=== PATIENT | female | born 1945 | race Caucasian/White ===

== ENCOUNTER 2018-03-12 07:05 | Emergency (ER) | payer OTHER ==
[~2018-03-12] VITALS: Ht 162.6 cm; Wt 85.5 kg
[2018-03-12 07:11] VITALS: BP 169/79; PULSE 80; RESP 16; TEMP 97.8; O2SAT 98
[2018-03-12] MEDS ORDERED: ORPHENADRINE INJ 60 MG/2 ML AMP IM ONE (07:15)
[2018-03-12] MEDS ORDERED: KETOROLAC TROMETHAMINE 60 MG/2 ML (IM) VIAL IM ONE (07:15)
--- NOTE | 2018-03-12 07:18 | PD ---
HPI Chief Complaint: Back/ Neck Pain or Injury Time Seen by Provider: 07:14 Travel History International Travel<30 days: No Contact w/Intl Traveler<30days: No Traveled to known affect area: No History of Present Illness HPI Patient comes in complaining of neck soreness. Started two mornings ago, after waking up, rates it a 6 out of 10, worse with movement, better with staying still. Patient denies any fecal or urinary incontinence. Patient denies any diffuse back pain to the thoracic lumbar regions. Patient denies any associated factors such as fever, rash, visual changes, headache, chest pain, flank pain, back pain, or abdominal pain. Patient states that originally she started to feel a little twinge 2 days ago, when she helped to lift a motorized wheelchair or her as they [facility]. No known drug allergy Past medical history significant for hypothyroidism, hypercholesterolemia, hypertension and a hysterectomy [facility] [place] Past Surgical History Hysterectomy: Yes Social History Tobacco Use: No Allergies-Medications (Allergen,Severity, Reaction): Coded Allergies: No Known Allergies (Verified Allergy, Unknown, 03/12/18) Reported Meds & Prescriptions Reported Meds & Active Scripts Active Reported Triamterene-Hydrochlorothiazide 37.5-25 Mg Tab 1 Tab DAILY Propranolol (Propranolol HCl) 20 Mg Tab 20 Mg PO DAILY Synthroid (Levothyroxine Sodium) 88 Mcg Tab 88 Mcg PO DAILY Citalopram (Citalopram Hydrobromide) 20 Mg Tab 20 Mg PO DAILY Simvastatin 20 Mg Tab 20 Mg PO DAILY Review of Systems General / Constitutional: No: Fever Eyes: No: Visual changes HENT: Positive: Neck Pain Cardiovascular: No: Chest Pain or Discomfort Respiratory: No: Shortness of Breath Gastrointestinal: No: Abdominal Pain Genitourinary: No: Dysuria Musculoskeletal: No: Pain Skin: No Rash Neurologic: No: Weakness Psychiatric: No: Depression Endocrine: No: Polydipsia Hematologic/Lymphatic: No: Easy Bruising Physical Exam Narrative GENERAL: SKIN: Warm and dry. HEAD: Atraumatic. Normocephalic. EYES: Pupils equal and round. No scleral icterus. No injection or drainage. ENT: No nasal bleeding or discharge. Mucous membranes pink and moist. NECK: Trachea midline. No JVD. No stridor. No midline tenderness to palpation , left posterior SCM has some spasm and tenderness to palpation. CARDIOVASCULAR: Regular rate and rhythm. RESPIRATORY: No accessory muscle use. Clear to auscultation. Breath sounds equal bilaterally. No wheezing GASTROINTESTINAL: Abdomen soft, non-tender, nondistended. Hepatic and splenic margins not palpable. MUSCULOSKELETAL: Extremities without clubbing, cyanosis, or edema. No obvious deformities. NEUROLOGICAL: Awake and alert. No obvious cranial nerve deficits. Motor grossly within normal limits. Five out of 5 muscle strength in the arms and legs. Normal speech. PSYCHIATRIC: Appropriate mood and affect; insight and judgment normal. Data Data Last Documented VS Vital Signs Date Time Temp Pulse Resp B/P (MAP) Pulse Ox O2 Delivery O2 Flow Rate FiO2 03/12/18 07:11 97.8 80 16 169/79 (109) 98 Orders Orders Spine, Cervical Compl([id number]) (03/12/18 ) Ketorolac Inj (Toradol Inj) (03/12/18 07:15) Orphenadrine Inj (Norflex Inj) (03/12/18 07:15) Group A Rapid Strep Screen (03/12/18 07:25) Strep Culture (Group A) (03/12/18 07:24) MDM Medical Decision Making Medical Screen Exam Complete: Yes Emergency Medical Condition: Yes Medical Record Reviewed: Yes Differential Diagnosis Cervical strain versus torticollis versus neck fracture versus neck dislocation versus next subluxation Narrative Course X-rays negative for any fracture, dislocation, or subluxation. Strep test is negative Diagnosis Primary Impression: Cervical strain Patient Instructions: Cervical Neck Strain Exercises (GEN), Cervical Strain (ED ), General Instructions Scripts Tramadol (Ultram) 50 Mg Tab 50 MG PO Q8H Y for PAIN, #10 TAB 0 Refills Prov: Ruben Arvizu MD 03/12/18 Baclofen (Baclofen) 20 Mg Tab 20 MG PO TID for Muscle Spasm, #15 TAB 0 Refills Prov: Ruben Arvizu MD 03/12/18 Disposition: 01 DISCHARGE HOME Condition: Stable Ruben Arvizu MD March 12, 2018 07:18
[2018-03-12] MEDS ORDERED: SIMV20TA PO (07:28)
[2018-03-12] MEDS ORDERED: CITA20TA4 PO (07:28)
[2018-03-12] MEDS ORDERED: SYNT88TA PO (07:28)
[2018-03-12] MEDS ORDERED: HYDR12.57 PO (07:28)
[2018-03-12] MEDS ORDERED: PROP20TA3 PO (07:30)
[2018-03-12] MEDS ORDERED: TRIA37.5 (07:30)
--- NOTE | 2018-03-12 08:09 | RADRPT ---
EXAM DATE/TIME: 03/12/2018 07:45 [facility] COMPARISON: No previous studies available for comparison. INDICATIONS : Left side neck pain and stiffness. MEDICAL HISTORY : None. SURGICAL HISTORY : None. ENCOUNTER: Initial ACUITY: 1 day PAIN SCORE: 8/10 LOCATION: Left neck FINDINGS: 6 views of the cervical spine demonstrate no fracture or dislocation. There is approximately 2 mm of anterolisthesis of C7 in relationship to C6 and T1. Decreased disc height is present at C3-C4 through C6-C7. There are endplate osteophytes anteriorly at these levels. No prevertebral soft tissue swelli ng is present and the atlantoaxial relationship is within normal limits. Oblique views demonstrate un covertebral osteophytes at multiple levels and at C6-C7 causing mild neural foraminal narrowing bilat erally. There is facet arthrosis at C7-T1. The visualized upper lung zones are clear. There is calcification of the aorta. CONCLUSION: 1. No acute cervical spine abnormality is identified. There is 2 mm of anterolisthesis of C7 in relat ionship to the adjacent vertebral bodies, possibly secondary to facet arthrosis. 2. There is moderate to severe degenerative disc disease at C3-C4 through C6-C7. Theo Cleveland MD on March 12, 2018 at 8:04 Board Certified Radiologist. This report was verified electronically.
[2018-03-12] MEDS ORDERED: TRAM50 PO (08:15)
[2018-03-12] MEDS ORDERED: BACL20TA PO (08:15)
== END 2018-03-12 08:57 | disposition home or self-care (01) ==
LOC: PHED 07:05
DX: S16.1XXA Strain of muscle, fascia and tendon at neck level, initial encounter (principal); E03.9 Hypothyroidism, unspecified; E78.00 Pure hypercholesterolemia, unspecified; I10 Essential (primary) hypertension; Z79.899 Other long term (current) drug therapy; X50.0XXA Overexertion from strenuous movement or load, initial encounter
CPT/HCPCS: 72050; 87081; 87880; 96372; 99284; J1885; J2360